=== PATIENT | male | born 1975 | race Caucasian/White ===

== ENCOUNTER 2024-10-11 14:12 | Emergency (ER) | payer BC, SELFPAY ==
--- NOTE | ~2024-10-11 | US_ITS ---
CLINICAL HISTORY: right testicular pain US Scrotum with color flow and pulse Doppler with spectral analysis: Comparison: None Technique: Real time sonographic imaging, including pulse Doppler and color-flow imaging, was performed. Multiple pharmaceutical sales representative static images were saved for review. Findings: Right testicle normal size and echotexture, measures 4.1 x 2.2 x 2.8. Normal color and spectral analysis. Left testicle normal size and echotexture, measures 4.1 x 2.3 x 2.8. Normal color and spectral analysis. Normal sized epididymides. An 8 x 6 mm left epididymal cyst is present No hydroceles or varicoceles. Impression: Normal scrotal ultrasound. No signs of testicular torsion. No inflammatory changes. This document has been electronically signed by: Gonzalo Billingsley MD on 10/11/2024 20:14:59
--- NOTE | ~2024-10-11 | US_ITS ---
CLINICAL HISTORY: right testicular pain US Scrotum with color flow and pulse Doppler with spectral analysis: Comparison: None Technique: Real time sonographic imaging, including pulse Doppler and color-flow imaging, was performed. Multiple personal service representative static images were saved for review. Findings: Right testicle normal size and echotexture, measures 4.1 x 2.2 x 2.8. Normal color and spectral analysis. Left testicle normal size and echotexture, measures 4.1 x 2.3 x 2.8. Normal color and spectral analysis. Normal sized epididymides. An 8 x 6 mm left epididymal cyst is present No hydroceles or varicoceles. Impression: Normal scrotal ultrasound. No signs of testicular torsion. No inflammatory changes. This document has been electronically signed by: Gonzalo Billingsley MD on 10/11/2024 20:14:59
--- NOTE | ~2024-10-11 | CT_ITS ---
CLINICAL HISTORY: lower abd pain CT abdomen and pelvis without contrast Comparison: None provided Findings: Small hiatal hernia. Hepatomegaly with steatosis. No urolithiasis. No bowel obstruction, pneumoperitoneum, or pneumatosis. Fat containing umbilical hernia. Mildly prominent mesenteric nodes, nonspecific. Mildly distended bladder. Prostatomegaly noted. Scattered colonic diverticulosis without diverticulitis or colitis. Normal appendix. No acute fracture. IMPRESSION: No acute findings. This document has been electronically signed by: Elvis Valerio MD on 10/11/2024 21:35:00
--- NOTE | 2024-10-11 14:15 | ECG_ITS ---
Test Reason : CHEST PAIN Blood Pressure : */* mmHG Vent. Rate : 100 BPM Atrial Rate : 100 BPM P-R Int : 134 ms QRS Dur : 90 ms QT Int : 340 ms P-R-T Axes : 41 -57 49 degrees QTcB Int : 438 ms Normal sinus rhythm Left axis deviation Abnormal ECG No previous ECGs available Referred By: Generic ED Physician Electronically Signed By: Gordy Mann
[2024-10-11 14:47] VITALS: BP 135/93; PULSE 100; RESP 16; TEMP 36.1; O2SAT 95; BMI 28.3
--- NOTE | 2024-10-11 14:47 | ED.GENADULT ---
HPI - General Adult General Chief complaint: Urogenital-Male Stated complaint: Chest Pain, Back/ R/L leg pain Time Seen by Provider: 10/11/24 18:02 History of Present Illness HPI narrative: Patient is a 49-year-old male presented today with having pain on urination. Also having pain in the right testicle. Going to the thigh area. There is no change in p.o. intake. Reports mild chest pain that lasts a 2nd or 2 there is no history of traveling. No increased size of the calf. No unilateral leg pain. The chest pain is very sharp it is 1-2 seconds there is no trigger not associated with shortness breath not associated with diaphoresis no recent stress test patient is 49 years old has a history of high blood pressure. History of high triglycerides. No stress test done in the past. Patient is sexually active with 1 partner. There is no penile discharge. There is pain on urination. Positive burning sensation on urination. Related Data Previous Rx's ?Medication ?Instructions ?Recorded phenazopyridine 200 mg tablet 200 mg PO TID 6 doses #6 tabs 10/11/24 (Pyridium) Allergies Allergy/AdvReac Type Severity Reaction Status Date / Time ibuprofen Allergy Hives Verified 10/11/24 14:50 metoprolol Allergy Shortness Verified 10/11/24 14:50 of Breath Review of Systems Review of Systems: Positive chest pain Positive testicular pain Yes all other systems are reviewed and are negative [facility] Social History Social History Smoked in Last 30 Days: No Use of substances other than those prescribed or required for medical reasons: No Advance Directives: No Advance Directives Information Provided: No Do you have a plan to hurt others: No Plan Physical Exam ED Vital Signs: Vital Signs - 24 hr 10/11/24 14:47 10/11/24 17:51 10/11/24 20:00 Temperature 97.0 F 98.2 F 98.3 F Pulse Rate 100 98 96 Respiratory Rate 16 18 16 Blood Pressure 135/93 H 119/78 123/77 Pulse Oximetry 95 97 95 Oxygen Delivery Method Room Air Room Air Room Air BMI result Body Mass Index 28.3 Appearance: Alert. Oriented X3. No acute distress. Eyes: Pupils equal, round and reactive to light. ENT: Pharynx normal. Neck: Normal inspection. Neck supple. No lymph nodes noted. No crepitus CVS: Normal heart rate and rhythm. Pulses normal. Normal S1 and S2 Respiratory: No respiratory distress. Breath sounds normal. No Wheezing. No rales Abdomen: Soft and nontender. No rigidity. No distention. good BS x4 Genital exam there is no testicular tenderness. Cremasteric reflex intact. There is no penile discharge on stripping. Skin: Skin warm and dry. Normal skin color. Normal skin turgor. Extremities: No lower extremity edema. Neurovascular intact to all extremities. No Lacerations. No Rash Neuro: Oriented X 3. No motor deficit. No sensory deficit. Moving all extermities. No slurred speech Course Course Course Narrative: RME, this is a rapid medical exam performed by Tom Foreman please refer to primary provider for complete H&P- 49-year-old male presents for evaluation of burning with urination. He also complains of pain radiating to his legs and also complains of chest pain. Plan for EKG, labs as well as urinalysis. Medications Administered Discontinued Medications Generic Name Dose Route Start Last Admin Trade Name Freq PRN Reason Stop Dose Admin Acetaminophen 975 mg 10/11/24 21:33 10/11/24 22:23 Acetaminophen 325 Mg Tablet PO 10/11/24 21:34 975 mg ONCE ONE Administration Medical Decision Making Medical Decision Making [facility] Narrative: Well-appearing no acute distress patient's urine showed no signs of infection. Patient's scrotal ultrasound was negative for any acute evidence of torsion. Gonorrhea chlamydia was sent patient claims he is monogamous with 1 partner. There is no penile discharge noted just pain on urination there is no retention patient's LFTs are normal. Had nonspecific pain troponins negative. CT scan of the abdomen pelvis is pending to look for kidney stones. 9:30 p.m. assumed care from previous provider pending CT results and final disposition. Patient continues to rest comfortably without complaints. 10:[address] shows no evidence of acute process. Patient is resting comfortably, nontoxic appearing and reports no real change in any of his symptoms. Encouraged hydration. Plan for discharge home, Pyridium for dysuria, follow-up with primary care. Discussed importance of follow-up as well as strict return precautions. Discharged home in stable condition. Differential Diagnosis Differential Diagnoses: The differential diagnosis associated with the presentation includes UTI, testicular torsion, epididymitis, STD, renal colic Admission/Observation Consideration of admission/observation: Escalation of care including admission/observation considered Lab Data MDM Lab Attestation statement: I reviewed the patient's lab results. 10/11/24 15:18 10/11/24 15:18 Labs: Lab Results 10/11/24 10/11/24 Range/Units 15:18 18:07 WBC 7.0 (4.8-10.8) X10*3/uL RBC 5.43 (4.60-5.80) X10*6/uL Hgb 15.4 (14.0-18.0) g/dl Hct 43.7 (42.0-52.0) % MCV 80.5 (80.0-98.0) fL MCH 28.4 (27.0-33.0) pg MCHC 35.2 (31.0-36.0) g/dl RDW 13.2 (11.0-16.0) % Plt Count 207 (160-400) X10*3/uL MPV 10.6 (9.4-12.4) fL Immature Gran % (Auto) 0.3 (0.0-0.4) % Neut % (Auto) 54.5 (45-73) % Lymph % (Auto) 28.8 (20-40) % [place] % (Auto) 13.2 H (2-11) % Eos % (Auto) 2.6 (0-4) % Baso % (Auto) 0.6 (0-2) % Lymph # (Auto) 2.0 (1.2-4.9) X10*3/uL [place] # (Auto) 0.9 (0.1-1.2) X10*3/uL Eos # (Auto) 0.2 (0.0-0.4) X10*3/uL Baso # (Auto) 0.0 (0.0-0.2) X10*3/uL Abs Immat Gran (auto) 0.02 (0.00-0.03) X10*3/uL Absolute Neuts (auto) 3.8 (2.0-8.3) x10*3/uL Absolute Nucleated RBC 0.000 (0.0-0.012) X10*3/uL Nucleated RBC % (auto) 0.0 (0.0-0.2) /100WBC Sodium 139 (135-145) mmol/L Potassium 4.1 (3.3-5.1) mmol/L Chloride 107 (96-108) mmol/L Carbon Dioxide 24 (22-29) mmol/L Anion Gap 12 (12-20) BUN 11 (9-16) mg/dL Creatinine 1.05 (0.5-1.4) mg/dL Estim Creat Clear Calc 81.5 Estimated GFR > 60 Random Glucose 101 (60-115) mg/dL Calcium 9.5 (8.4-10.2) mg/dL Total Bilirubin 0.5 (0.0-1.0) mg/dL AST 29 (5-37) U/L ALT 34 (0-40) U/L Alkaline Phosphatase 77 (39-117) U/L Troponin I High Sens < 2.7 (<3.5-35.0) ng/L Total Protein 7.4 (6.5-8.0) g/dL Albumin 4.6 (3.5-5.0) g/dL Lipase 47 (8-78) U/L Urine Color Yellow Urine Appearance Clear Urine pH 6.5 (5.0-9.0) Ur Specific [place] 1.025 (1.005-1.025) Urine Protein Negative (Neg-Trace) mg/dL Urine Glucose (UA) Negative (Negative) mg/dL Urine Ketones Trace (Negative) mg/dL Urine Blood Negative (Negative) Urine Nitrite Negative (Negative) Ur Leukocyte Esterase Trace H (Negative) Urine RBC 0-2 (0-2) /HPF Urine WBC 0-5 (0-5) /HPF Ur Squamous Epith Cells 0-2 (0-2) /HPF Urine Bacteria None Seen (None Seen) Hyaline Casts 0-2 (0-2) /LPF Radiology Impression Discussion of test interpretation with radiology: I have reviewed the radiologist's reading. Radiologist Impression: CT abdomen and pelvis without contrast Comparison: None provided Findings: Small hiatal hernia. Hepatomegaly with steatosis. No urolithiasis. No bowel obstruction, pneumoperitoneum, or pneumatosis. Fat containing umbilical hernia. Mildly prominent mesenteric nodes, nonspecific. Mildly distended bladder. Prostatomegaly noted. Scattered colonic diverticulosis without diverticulitis or colitis. Normal appendix. No acute fracture. IMPRESSION: No acute findings. This document has been electronically signed by: Elvis Valerio MD on 10/11/2024 21:35:00 Discharge Plan Discharge Clinical Impression: Dysuria Patient Disposition: Home, Self-Care Instructions: Dysuria (ED) Prescriptions: New phenazopyridine [Pyridium] 200 mg tablet 200 mg PO TID Qty: 6 0RF Referrals: Kobi Isidro III, MD [Primary Care Provider] - 10/13/24 Print Language: Israeli
[2024-10-11 15:24] LABS: MANUAL DIFF FLAG NO
[2024-10-11 15:27] LABS: Basophils Percent Auto 0.6 % (0-2); Eosinophils Absolute Auto 0.2 X10*3/uL (0.0-0.4); Eosinophils Percent Auto 2.6 % (0-4); Hematocrit 43.7 % (42.0-52.0); Hemoglobin 15.4 g/dl (14.0-18.0); Imm Gran Abs Auto 0.02 X10*3/uL (0.00-0.03); Imm Gran Pct Auto 0.3 % (0.0-0.4); Lymphocytes Percent Auto 28.8 % (20-40); Mean Corpuscular HGB Conc 35.2 g/dl (31.0-36.0); Mean Corpuscular Hemoglobin 28.4 pg (27.0-33.0); Mean Corpuscular Volume 80.5 fL (80.0-98.0); Mean Platelet Volume 10.6 fL (9.4-12.4); Monocytes Absolute Auto 0.9 X10*3/uL (0.1-1.2); Monocytes Percent Auto 13.2 % (2-11); Neutrophils Absolute Auto 3.8 x10*3/uL (2.0-8.3); Neutrophils Percent Auto 54.5 % (45-73); Platelet Count 207 X10*3/uL (160-400); Red Blood Count 5.43 X10*6/uL (4.60-5.80); Red Cell Distribution Width 13.2 % (11.0-16.0)
[2024-10-11 15:45] LABS: Alanine Aminotransferase 34 U/L (0-40); Albumin Level 4.6 g/dL (3.5-5.0); Alkaline Phosphatase 77 U/L (39-117); Anion Gap 12 (12-20); Aspartate Amino Transferase 29 U/L (5-37); Bilirubin Total 0.5 mg/dL (0.0-1.0); Blood Urea Nitrogen 11 mg/dL (9-16); Calcium 9.5 mg/dL (8.4-10.2); Carbon Dioxide 24 mmol/L (22-29); Chloride 107 mmol/L (96-108); Creatinine Clr Calc Pharmacy 81.5; Estimated Glomerular Filt Rate > 60; Glucose Random 101 mg/dL (60-115); Lipase 47 U/L (8-78); Potassium 4.1 mmol/L (3.3-5.1); Sodium 139 mmol/L (135-145); Total Protein 7.4 g/dL (6.5-8.0)
[2024-10-11 15:56] LABS: Troponin-I High Sensitivity < 2.7 ng/L (<3.5-35.0)
[2024-10-11 17:51] VITALS: BP 119/78; PULSE 98; RESP 18; TEMP 36.8; O2SAT 97
[2024-10-11 18:15] LABS: Appearance Urine Clear; Color Urine Yellow; Glucose Urine UA Negative (Negative); Leukocyte Esterase Urine Trace (Negative); Nitrite Urine Negative (Negative); PH 6.5 (5.0-9.0); Specific Gravity - Urine 1.025 (1.005-1.025); UMIC TRIGGER UACC YES; Urine Blood Negative (Negative); Urine Ketones Trace mg/dL (Negative); Urine Protein Negative (Neg-Trace)
[2024-10-11 18:20] LABS: Bacteria Urine None Seen (None Seen); Hyaline Casts Urine 0-2 /LPF (0-2); RBC Urine 0-2 /HPF (0-2); Squamous Epithelial Cell Urine 0-2 /HPF (0-2); WBC Urine 0-5 /HPF (0-5)
--- OUTSIDE RECORDS SUMMARY | 2024-10-11 18:50 | XMS_ITS | Encounter Summary ---
Author Organization [facility] [address] Care Team Providers Care Roofer Applicator Name Role Phone Kobi Isidro MD Primary Care Provider [phone] Reason for Visit * Reason Onset Date Comments No Show 10/07/2024 Encounter Details Date Type Department Care Team ([facility] st Contact Info) Description 10/07/2024 Telephone [facility] [address] [facility] [address] [place] [phone] Xavier Richardson MD [address] [facility] [address] [place], [place] [id number] No Show Social History Tobacco Use Types Packs/Day Years Used Date Smoking Tobacco: Former Cigarettes Q uit: 03/15/2010 Smokeless Tobacco: Never Alcohol Use Standard Drinks/Week Comments Yes 2.5 (1 standard drink = 0.6 oz p ure alcohol) Housing Instability Answer Date Recorde d Are you worried that in the next 2 months you may not have stable housing? No 07/12/2024 Food Access & Nutrition Answer Date Rec orded Do you have access to a vari ety of food including fruits and vegetables? Yes 07/12/2024 Health Literacy Answer Date Recorded How often do you need to hav e someone help you when you read instructions, pamphlets, or other written material from your doctor or pharmacy? Never 07/12/2024 Caregiver: How often do you need to have someone help you when you read instructions, pamphlets, or other written material from your doctor or pharmacy? Not on file 07/12/2024 Financial Risk Answer Date Recorded How hard is it for you to pa y for the very basics like food, housing, medical care, and air conditioning / heating? Patient declined 07/12/2024 Transportation Answer Date Recorded Has the lack of transportati on kept you from meetings, work, or from getting things needed for daily living? No Has the lack of transportati on kept you from medical appointments or from getting medications? No 07/12/2024 Social Isolation Answer Date Recorded How often do you feel lonely or isolated from th ose around you? Rarely 07/12/2024 Food Risk Answer Date Recorded Within the past 12 months we worried whether our food would run out before we got money to buy more. Never true 07/12/2024 Within the past 12 months th e food we bought just didn't last and we didn't have money to get more. Never true 07/12/2024 Dependent Care Answer Date Recorded Do you need help finding or paying for care for your loved ones. For example, child care supervisor or elderly care for an older adult? No 07/12/2024 Education Answer Date Recorded Do you think completing more education or training, like finishing a GED, going to college, or learning a trade, would be helpful for you? No 07/12/2024 Employment and Income Answer Date Recor ded During the last four weeks, have you been actively looking for work? No 07/12/2024 Living Situation Answer Date Recorded What is your living situation? 0 07/12/2024 Sex and Gender Information Value Date Recorded Sex Assigned at Not on file Legal Sex Male 2:23 AM EST Gender Identity Not on file Sexual Orientation Not on file documented as of this encounter Progress Notes * Magi Dupree MA - 10/07/2024 10:11 AM EDT Letter sent with information on no showed appointment and no show policy documented in this encounter Plan of Treatment Upcoming Encounters Date Type Department Care Team (Late st Contact Info) Description 10/12/2024 9:00 AM EDT Office Visit Orthopedics [address] [place] [phone] Mickey Jeff PA [address] [place] [address] 10/17/2024 8:10 AM EDT Office Visit [facility] - [address] [facility] [address] [place] [phone] Brittany Walters NP [address] [place] [address] documented as of this encounter Visit Diagnoses Not on filedocumented in this encounter Additional Health Concerns Assessment Noted Time PHQ-9 Depression Total Score: 0 07/13/19 25 1:11 PM EDT documented as of this encounter Care Teams Roofer Applicator Relationship Specialty Start Date End Date Kobi Isidro MD [address] [place] [address] PCP - General Internal Medicine 03/14/13 documented as of this encounter
--- NOTE | 2024-10-11 19:48 | PC.NURSE ---
ua at bedside at this time
[2024-10-11 20:00] VITALS: BP 123/77; PULSE 96; RESP 16; TEMP 36.8; O2SAT 95
--- NOTE | 2024-10-11 22:17 | MHC.EDTECH ---
bladder scan preformed prior to urination with 162ml. bladder scan preformed after urination with no difficulty with 0ml.
[2024-10-11] MEDS: Acetaminophen 325 MG TABLET 975 MG PO (22:23)
[2024-10-11 23:03] VITALS: BP 123/77; PULSE 96; RESP 16; TEMP 36.8; O2SAT 95
[2024-10-12 06:09] LABS: CT PCR NOT DETECTED (Not Detect.); NG PCR NOT DETECTED (Not Detect.)
== END 2024-10-11 23:03 | disposition home or self-care (01) ==
PROVIDERS: Emergency Medicine Emergency Medical Services; Physician Assistant; Emergency Provider Emergency Medicine; PCP Internal Medicine
DX: R30.0 Dysuria (principal); N50.811 Right testicular pain; I10 Essential (primary) hypertension; Z79.899 Other long term (current) drug therapy
CPT/HCPCS: 36415; 74176; 76870; 80053; 81001; 83690; 84484; 85025; 87491; 87591; 93005; 93975; 99284; 99285

== ENCOUNTER → 2024-10-11 14:15 | Outpatient (BNV) | payer BC, SELFPAY | PROVIDERS: Emergency Provider Emergency Medicine; PCP Internal Medicine; Visit Provider Internal Medicine Cardiovascular Disease | DX: R94.31 Abnormal electrocardiogram [ECG] [EKG] (principal); R07.9 Chest pain, unspecified | CPT/HCPCS: 93010 ==

== ENCOUNTER → 2024-10-11 18:12 | Outpatient (BNV) | payer BC, SELFPAY | PROVIDERS: Emergency Provider Emergency Medicine Emergency Medical Services; PCP Internal Medicine; Visit Provider Radiology Diagnostic Radiology | DX: K57.30 Diverticulosis of large intestine without perforation or abscess without bleeding (principal); N50.811 Right testicular pain | CPT/HCPCS: 74176; 76870; 93975 ==

== ENCOUNTER 2025-02-16 20:00 | Emergency (ER) | payer BC, SELFPAY ==
--- NOTE | ~2025-02-16 | XR_ITS ---
CLINICAL HISTORY: closed in car door 3 view right hand Comparison: None provided Findings: Minimal cortical irregularity present at the distal tuft of the 5th distal phalanx, consistent with a fracture. No radiopaque foreign body. IMPRESSION: 1. Fracture present at the distal tuft of the 5th distal phalanx of the right hand. This document has been electronically signed by: Kyle Cantu MD on 02/16/2025 21:43:31
[2025-02-16 20:03] VITALS: BP 139/85; PULSE 93; RESP 12; TEMP 36.9; O2SAT 97; BMI 29.1
--- NOTE | 2025-02-16 20:21 | ED_ITS ---
HPI - Extremity Problem General Chief complaint: Extremity Injury, Upper Stated complaint: hit finger w car Time Seen by Provider: 02/16/25 20:17 Source: patient Mode of arrival: ambulatory Limitations: no limitations History of Present Illness ED Provider: JEROMY HERMOSILLO PA-C HPI Narrative: 49-year-old [id number] male presents to the ED today for evaluation of right 5th digit injury. Patient states he accidentally closed his right 5th digit in his car door at approximately 2:30 p.m. today. He presented to urgent care who sent him to our facility for x-rays. He states that his nail is lifted off of his finger. He attempted to remove it by himself however was unsuccessful. Admits to 9/10 pain to the digit however is declining any pain meds at this time. Denies any difficulty moving the finger. He is not on anticoagulation. denies numbness/tingling. Related Data Previous Rx's ?Medication ?Instructions ?Recorded phenazopyridine 200 mg tablet 200 mg PO TID 6 doses #6 tabs 10/11/24 (Pyridium) Allergies Allergy/AdvReac Type Severity Reaction Status Date / Time ibuprofen Allergy Hives Verified 03/07/25 09:07 metoprolol Allergy Shortness Verified 03/07/25 09:07 of Breath Review of Systems Review of Systems: Yes all other systems are reviewed and are negative [facility] Past Medical History Attestation statement: The following information was validated with the patient. Source: old records reviewed and nursing notes reviewed Social History Social History Alcohol intake: current Alcohol intake frequency: holidays/special occasions o nly Alcohol type: wine Patient Tobacco Use Status: Former Tobacco user Current occupational status: employed Current occupation: rt handed, Sales Physical Exam Vital Signs: Vital Signs: Last Vital Signs Temp 98.2 F 02/16/25 23:05 Pulse 78 02/16/25 23:05 Resp 15 02/16/25 23:05 BP 144/78 H 02/16/25 23:05 Pulse Ox 96 02/16/25 23:05 O2 Del Method Room Air 02/16/25 23:05 BMI result Body Mass Index 29.1 vitals wnl General: Well appearing, in no acute distress. Skin: Warm, dry, intact. No rashes or lesions. Head: Normocephalic, atraumatic. EENT: Hearing is intact b/l. Conjunctiva clear. PERRLA. EOM intact. Moist mucous membranes.? Cardiac: Chest wall symmetric. RRR Lungs: Normal respiratory effort without accessory muscle use Back: No midline spinous or paraspinal tenderness. No step off deformity. Ext: +right 5th digit nail plate lifted from bed at proximal end. distal aspect of nail plate in place. no active bleeding. no damage noted to nail bed. FROM intact to right 5th MCP/PIP/DIP. Neuro: AOx3. Normal speech. Ambulating with steady gait. Psych: Appropriate mood and affect. Responds appropriately to questions. Course Course Course Narrative: digit block performed after obtaining verbal consent from patient. I was able to secure nail plate under proximal nail fold, one suture placed through nail to attach the nail to the nail bed. patient tolerate well. xr showing distal tuft fracture to 5th digit. finger splint applied. will place patient on augmentin. tdap updated. advised to f/u with hand surgery - referral provided. Patient has remained stable throughout ED visit today. Discussed worrisome signs and symptoms and when to return to the ED. All questions answered at this time. Patient is agreeable with disposition and stable for discharge. Medications Administered Discontinued Medications Generic Name Dose Route Start Last Admin Trade Name Freq PRN Reason Stop Dose Admin Amoxicillin/Clavulanate Potassium 875 mg 02/16/25 22:39 02/16/25 23:00 Amoxicillin/Potassium Clav 875 Mg Tablet PO 02/16/25 22:40 875 mg ONCE ONE Administration Diphtheria/Tetanus/Acell Pertussis 0.5 ml 02/16/25 22:39 02/16/25 23:00 Diphth,Pertus(Acell),Tet Adult 0.5 Ml Syringe IM 02/16/25 22:40 0.5 ml .ONCE ONE Administration Lidocaine HCl 10 ml 02/16/25 20:28 02/16/25 20:34 Lidocaine Hcl 1 % Mpf 5 Ml Vial INFILTRATI 02/16/25 20:29 10 ml ONCE ONE Administration Medical Decision Making Medical Decision Making MDM Narrative: 49-year-old [id number] male presents to the ED today for evaluation of right 5th digit injury. hypertensive, vitals are wnl. on exam, right 5th digit nail plate lifted from bed at proximal end. distal aspect of nail plate in place. no active bleeding. no damage noted to nail bed. FROM intact to right 5th MCP/PIP/DIP. Differential diagnosis includes fracture, dislocation, nail bed injury, subungal hematoma Plan for xrays and re-evaluation. Will attempt nail repair. Tdap will be updated today. Differential Diagnosis Differential Diagnoses: The differential diagnosis associated with the presentation includes as above. Admission/Observation not indicated. Procedures Laceration Laceration 1: Site: hand (5th digit nail) Side (If applicable): right Local Anesthetic: lidocaine 1% Amount of anesthesia used (mL): 10 Pre-repair: wound explored and irrigated extensively Skin layer closed with: nylon Size (cm): 3-0 Number of sutures: 1 Nerve Block Nerve Block 1: Time out performed: Yes Local Anesthetic: lidocaine 1% Amount of anesthesia used (mL): 10 Side: right Nerve Blocks: digital (5th) Procedure Successful: Yes Patient Tolerated Procedure: well Complications: none Orthopedic Splinting/Casting Injury #1: Side: right Upper Extremity Injury Location: finger Upper Extremity Immobilizer: aluminum form splint Discharge Plan Discharge Clinical Impression: Fracture of finger, Injury of nail bed of finger Patient Disposition: Home, Self-Care Instructions: Finger Fracture (ED) Additional Instructions: You were seen in the ED today for following a crush injury to your right pinky finger. You have a fracture of the tip of your finger. This does not need to be splinted. Your nail bed was reinserted. There is [address] You need to return in 7-10 days to have this removed. You may also have this done at any urgent care or your primary care office. Take Tylenol and/or Ibuprofen as needed for pain. Rest and ice the finger as this can help with swelling and pain. I am sending you home with antibiotics (Augmentin). On Augmentin, softer bowel movements are to be expected. Call your provider if you move your bowels more than 4 times a day, your bowel movements are almost all liquid, or you get a rash.? Your tetanus was updated today. Follow up with Orthopedics. You have been provided with a referral. Call them to establish care. They will not call you. Return with new or worsening symptoms. In the case of an emergency call 911. Prescriptions: No Action phenazopyridine [Pyridium] 200 mg tablet 200 mg PO TID Qty: 6 0RF Referrals: [facility] [Provider Group] Referral Note: open finger fracture Kobi Isidro III, MD [Primary Care Provider, Medical] Stand Alone Forms: Work/School Release Interventions: ED Discharge Assessment Last Done: 02/16/25 23:05 Discharge Date/Time: 02/16/25 23:05 Print Language: Faroese
--- OUTSIDE RECORDS SUMMARY | 2025-02-16 20:21 | XMS_ITS | Clinical Summary ---
Author Organization [address] [facility] Address [address] [place] [address] Phone Care Team Providers Care Cryptologic Support Specialist Name Role Phone Kobi Isidro MD Primary Care Provider [phone] Allergies Active Allergy Reactions Criticality Noted Date Comments Apple Rash 03/15/2013 Flavoring Agent 04/01/2021 Ibuprofen 01/23/2021 Metoprolol Hives 10/28/2023 Milk 04/01/2021 Other 03/15/2013 Some vegetables Fruit (Generic Multi-vegetable Shellfish Allergy Shellfish Derived 09/20/2024 [place] 10/14/2013 Medications amitriptyline (ELAVIL) 25 mg tablet Take 1 Tablet by mouth at bedtime. Active atorvastatin (LIPITOR) 10 mg tablet Take 1 tablet (10 mg total) by mouth 1 (one) time each day. 30 each 03/28/2024 5 Active hydroCHLOROthia zide (HYDRODIURIL) 25 mg tablet Take 1 tablet (25 mg total) by mouth 1 (one) time each day. 30 each 09/20/2024 6 Active fenofibrate (TRICOR) 48 mg tablet TAKE 1 TABLET(48 MG) BY MOUTH 1 TIME EACH DAY 30 tablet 1 11/10/2024 Active lisinopriL (PRINIVIL,ZESTR IL) 20 mg tablet TAKE 1 TABLET BY MOUTH DAILY 90 tablet 3 12/20/2024 Active dilTIAZem (Tiadylt ER) 240 mg 24 hr capsule Take 1 capsule (240 mg total) by mouth 1 (one) time each day. 90 capsule 1 12/22/2024 Active Active Problems Problem Noted Date Diagnosed Date Internal hemorrhoids 02/08/2024 Constipation 02/08/2024 Dizziness 03/06/2023 Chest pain 03/06/2023 Assessment & Plan (09/20/2024 9:04 AM EDT): The patient has atypical sounding chest discomfort that corresponds per his report with elevation his blood pressure. To start, will better control his blood pressure at home and follow his symptoms. Should he continue with chest discomfort with better control blood pressure, will begin ischemic evaluation DVT (deep venous thrombosis) ([facility] V24, [facility]/ [facility] V28) 05/02/2022 Overview (02/08/2024): Last Assessment & Plan: He did have a DVT. He is on Eliquis. I did tell him he needs to follow-up with his PCP regarding the timeframe that he should be on this. He needs to follow-up with his PCP for refills of his medications as I do not treat DVTs. He understands this. Obstructive sleep apnea 07/22/2021 Overview (02/08/2024): [facility] Home Sleep Apnea Test: Date 07/16/2021; Wt 175#; BMI 29; KARYNA (AHI) 27, AI 22; HI 4; Unclassified apneas 0; Obstructive apneas 66; Central apneas 2; Mixed apneas 0; hypopneas 12; average oxygen saturation 88% (lowest 70% with saturations <88% for 5% or more of study) [facility] treatment polysomnogram 09/25/2021. Weight 178; BMI 29. Interpretation: Sleep apnea appears well controlled with CPAP pressure of 6. - Obstructive Sleep Apnea - moderate; mostly obstructive apneas and hypopneas; with sleep related hypoventilation by 2021 home sleep apnea test. Sleep Medicine Services managing. Hypersomnia 06/26/2021 Overview (02/08/2024): Last Assessment & Plan: Previous at home sleep study showed significant apnea. He is having an in-house sleep study performed in the next week or so. Aortic aneurysm ([facility] V24) 06/26/2021 Overview (09/20/2024): - 4.1cm 09/2022 -4.2 cm 01/2024 Assessment & Plan (09/20/2024 9:05 AM EDT): The patient's aorta size is stable across multiple echocardiograms. Could consider updated testing in 2025. Tachycardia 04/01/2021 Overview (09/20/2024): - average HR on holter 2021 116 - on diltiazem, listed allergies to metoprolol -Average heart rate 112 10/2023 Assessment & Plan (09/20/2024 9:06 AM EDT): The patient's heart rate is better controlled of late on his current dose diltiazem. He has a listed allergy to metoprolol. For now, continue diltiazem at current dose Palpitations 03/27/2021 Overview (02/08/2024): Last Assessment & Plan: AnyHe has palpitations that lasts 1 to 1-1/2 minutes. This occurs on a daily basis. This can happen several times a day. They started 3 weeks ago. He started drinking coffee 1 month ago. I asked him to stop drinking coffee and keep an eye on his symptoms over the next month. He will call me and let me know provement. We will decide on Holter monitoring at that time if necessary. Overweight (BMI 25.0-29.9) 12/25/2020 Dora spots 07/17/2020 Overview (02/08/2024): On penis (Dr. Willard) Hepatic steatosis 09/14/2019 Diverticulosis of colon 09/14/2019 Epididymal cyst 05/05/2019 Overview (02/08/2024): Right side, 8mm imagining 04/2019, referred to urology Hypertension 08/25/2016 Assessment & Plan (09/20/2024 9:08 AM EDT): Patient continues to report elevated blood pressure at home. His blood pressure is well-controlled in office today. He reports that he correlates his blood pressure across to machines and they both give elevated readings. His blood pressure machines have not been correlated in office though. He could bring him into our office at his next visit we can correlate them. Will increase his hydrochlorothiazide to 25 mg daily. Historically, he has indicated that he has had rise in his creatinine on higher dose HCTZ. This may have been situational and he is willing to try it again. Will follow his renal function and electrolytes on labs in about a week. If his creatinine rises again, could consider increasing his diltiazem and/or starting hydralazine. If his creatinine rises, would also consider renal artery ultrasound. Hypertriglyceridemia 08/04/2016 Assessment & Plan (09/20/2024 9:08 AM EDT): The patient has been prescribed fibrate therapy by his PCP. He continues on statin. Update fasting lipid profile with his BMP in the next couple of weeks. Gynecomastia 09/08/2013 Breast mass 09/08/2013 Surgical History Surgery Date Site/Laterality Comments MULTIPLE TOOTH EXTRACTIONS PROCEDURE: HISTORICAL DENTAL EXTRACTION COLONOSCOPY 11/02/2015 PROCEDURE: HISTORICAL COLONOSCOPY; COMMENT: Normal examination UPPER GASTROINTESTINAL ENDOSCOPY 11/02/2015 PROCEDURE: GA UPPER GI ENDOSCOPY PERFORMED; COMMENT: Minimal visible erosive esophagitis, confirmed on biopsy. ESOPHAGOGASTRODUODENOSCOPY PROCEDURE: GA EGD TRANSORAL BIOPSY SINGLE/MULTIPLE; COMMENT: Performed on March 30, [address] Lorri Caceres-performed with colonoscopy COLONOSCOPY PROCEDURE: HISTORICAL COLONOSCOPY; COMMENT: Performed on March 30, [address] Lorri Caceres-performed with EGD-internal hemorrhoids and diverticulosis noted Medical History Medical History Date Comments Epigastric pain DX:Epigastric pa in Abdominal discomfort in righ t upper quadrant DX:Abdominal discomfort in r ight upper quadrant Fatty liver DX:Fatty liver Elevated cholesterol with el evated triglycerides DX:Elevated cholesterol with elevated triglycerides Diverticulosis DX:Diverticulosi s Internal hemorrhoids DX:Internal hemorrhoids Dyspepsia DX:Dyspepsia Abdominal pain DX:Abdominal khalif n Constipation DX:Constipation Hyperlipidemia DX:Hyperlipidemi a Family History Medical History Relation Name Comments Hypertension Father Melanoma Father Other: Other Mother alive and well Colon cancer Mother's side uncle Hypertension Mother's side Blindness Neg Hx Cataracts Neg Hx Glaucoma Neg Hx Macular degeneration Neg Hx Strabismus Neg Hx Relation Name Status Comments Father Mother Mother's side Social History Tobacco Use Types Packs/Day Years Used Date Smoking Tobacco: Former Cigarettes Q uit: 03/15/2010 Smokeless Tobacco: Never Tobacco Cessation:Counseling Given: Not Answered Alcohol Use Standard Drinks/Week Comments Yes 2.5 [...] care for your loved ones. For example, assistant child care teacher or elderly care for an older adult? [...] Date Recorded What is your living situation? Unrecognized valu e 07/12/2024 Sex and Gender Information Value Date Recorded Sex Assigned at Not on file Legal Sex Male 2:23 AM EST Gender Identity Not on file Sexual Orientation Not on file Obstetrics History Last Filed Vital Signs Vital Sign Reading Time Taken Comments Blood Pressure 124/80 09/20/2024 8:30 AM EDT Pulse 89 09/20/2024 8:30 AM EDT Temperature 36.2 C (97.1 F) 07/13/2024 9:01 AM EDT Respiratory Rate 16 07/13/2024 9:01 AM EDT Oxygen Saturation 97% 09/20/2024 8:30 AM EDT Inhaled Oxygen Concentration - - Weight 82.2 kg (181 lb 3.2 oz) 09/20/2024 8:30 A M EDT Height 165.1 cm (5' 5 ) 09/20/2024 8:30 AM EDT Body Mass Index 30.15 09/20/2024 8:30 AM EDT Plan of Treatment Upcoming Encounters Date Type Department Care Team (Late st Contact Info) Description 02/17/2025 7:40 AM EDT Office Visit [facility] [address] [facility] [address] [place] [address] Brittany Walters, MAEGAN [address] [facility] [address] [place] [address] Health Maintenance Due Date Last Done Comments Hepatitis B Vaccines (1 of 3 - 19+ 3-dose series) 1994 HIV Screening 04/05/2022 COVID-19 Vaccine ( - season) 2024 Influenza Vaccine (#1) 2024 Social Influencers of Health Screening 07/12/2025 07/12/2024 Hypertension/CHF/CAD Annual BMP Blood Test 09/29/2025 09/29/2024, 05/23/2024, 03/23/2024, Additional history exists Cholesterol Screening (Lipid Panel) 09/29/2029 09/29/2024, 03/23/2024, 03/23/2024, Additional history exists Colorectal Cancer Screening: Colonoscopy 05/29/2031 05/29/2021 DTaP,Tdap,and Td Vaccines (2 - Td or Tdap) 07/01/2031 06/30/2021 RSV Immunization Adult Patients (1 - 1-dose 75+ series) 2050 Hepatitis C Screening Completed 12/25/2020 Depression Screening Completed 07/12/2024 HIB Vaccines Aged Out No longer eligi ble based on patient's age to complete this topic HPV Vaccines Aged Out No longer eligi ble based on patient's age to complete this topic Hepatitis A Vaccines Aged Out No long er eligible based on patient's age to complete this topic IPV Vaccines Aged Out No longer eligi ble based on patient's age to complete this topic MMR Vaccines Aged Out No longer eligi ble based on patient's age to complete this topic Meningococcal ACWY Vaccine Aged Out N o longer eligible based on patient's age to complete this topic Meningococcal B Vaccine Aged Out No l onger eligible based on patient's age to complete this topic Pneumococcal Vaccine: Pediatrics (0 to 5 Years) and At-Risk Patients (6 to 49 Years) Aged Out No longer eligible based on patient's age to complete this topic RSV Immunization Patients Under 20 months Aged Out No longer eligible based on patient's age to complete this topic Varicella Vaccines Aged Out No longer eligible based on patient's age to complete this topic Procedures Procedure Name Priority Date/Time Associated Diagnosis Comments BASIC METABOLIC PANEL Routine 09/29/2024 9:47 AM EDT Primary hypertension LIPID PANEL WITH REFLEX TO DIRECT LDL Routine 09/29/2024 9:47 AM EDT Hypertriglyceridemia COLONOSCOPY Routine 05/29/2021 HEPATITIS C SCREENING Routine 12/25/2020 from Last 3 Months or Most Recently Relevant to Health Maintenance Results * (ABNORMAL) Lipid panel with reflex to direct LDL (09/29/2024 9:47 AM EDT) Cholesterol 166 0 - 200 mg/dL LAB CHEMISTRY METHOD 09/29/2024 12:59 PM EDT [facility] Triglycerides 260(H) 0 - 150 mg/dL LAB CHEMISTRY METHOD 09/29/2024 12:59 PM EDT [facility] HDL 40 >=40 mg/dL LAB CHEMISTRY METHOD 09/29/2024 12:59 PM EDT [facility] LDL Calculated 74 0 - 100 mg/dL LAB CHEMISTRY METHOD 09/29/2024 12:59 PM EDT [facility] VLDL Cholesterol Thro 52 mg/dL LAB CHEMISTRY METHOD 09/29/2024 12:59 PM EDT [facility] Non HDL Chol. (LDL+VLDL) 126 <145 mg/dL LAB CHEMISTRY METHOD 09/29/2024 12:59 PM EDT [facility] Chol/HDL Ratio 4.2 0.0 - 4.4 LAB CHEMISTRY METHOD 09/29/2024 12:59 PM EDT [facility] Blood Venous blood specimen / Unknown Venipuncture / Unknown 09/29/2024 9:47 AM EDT 09/29/2024 9:47 AM EDT us Brittany Walters NP LAB BLOOD ORDERABLES Final Resu lt [facility] [address] [place] [address], * Basic metabolic panel (09/29/2024 9:47 AM EDT) Pathologist [facility] Sodium 134 133 - 145 mmol/L LAB CHEMISTRY METHOD 09/29/2024 12:59 PM EDT [facility] Potassium 4.1 3.5 - 5.5 mmol/L LAB CHEMISTRY METHOD 09/29/2024 12:59 PM EDT [facility] Chloride 105 96 - 110 mmol/L LAB CHEMISTRY METHOD 09/29/2024 12:[address] [facility] CO2 21 21 - 32 mmol/L LAB CHEMISTRY METHOD 09/29/2024 12:[address] [facility] Anion Gap 8 3 - 11 LAB CHEMISTRY METHOD 09/29/2024 12:[address] [facility] Glucose 100 70 - 100 mg/dL LAB CHEMISTRY METHOD 09/29/2024 12:[address] [facility] BUN 18 5 - 25 mg/dL LAB CHEMISTRY METHOD 09/29/2024 12:[address] [facility] Creatinine 1.11 0.70 - 1.30 mg/dL LAB CHEMISTRY METHOD 09/29/2024 12:[address] [facility] eGFR 81 >=60 mL/min/1. 73m2 LAB CHEMISTRY METHOD 09/29/2024 12:[address] [facility] Comment:Calculation based on the Chronic Kidney Disease Epidemiology Collaboration (CKD-EPI) equation refit without adjustment for race. BUN/Creatinine Ratio 16.2 LAB CHEMISTRY METHOD 09/29/2024 12:[address] [facility] Calcium 9.3 8.5 - 10.5 mg/dL LAB CHEMISTRY METHOD 09/29/2024 12:[address] [facility] Blood Venous blood specimen / Unknown Venipuncture / Unknown 09/29/2024 9:47 AM EDT 09/29/2024 9:47 AM EDT Brittany Walters NP LAB BLOOD ORDERABLES Final Resu lt [facility] [address] [place] [address], * Colonoscopy (05/29/2021) Colonoscopy no interpretation abstracted Anatomical Region Laterality Modality Other Historical Provider HEALTH MAINTENANCE Final Result * Hepatitis C Screening (12/25/2020) Hepatitis C Screening abstracted us Historical Provider HEALTH MAINTENANCE Final Result from Last 3 Months or Most Recently Relevant to Health [place] [phone] [facility] Care Teams Cryptologic Support Specialist Relationship Specialty Start Date End Date Kobi Isidro MD [address] [place] [address] DEEPALI PERDOMO [phone] PCP - General Internal Medicine 02/14/25
--- OUTSIDE RECORDS SUMMARY | 2025-02-16 20:21 | XMS_ITS | Clinical Summary ---
Author Organization [facility] Address [address] [place], [place] [id number] Care Team Providers Care Foam Fabricator Name Role Phone Kobi Isidro MD Primary Care Provider [phone] Allergies Active Allergy Reactions Criticality Noted Date Comments Ibuprofen Anaphylaxis High 07/22/2022 Medications No known medications Active Problems No known active problems Social History Tobacco Use Types Packs/Day Years Used Date Smoking Tobacco: Never Smokeless Tobacco: Never Tobacco Cessation:Counseling Given: Not Answered Alcohol Use Standard Drinks/Week Comments Never 0 (1 standard drink = 0.6 oz pur e alcohol) Sex and Gender Information Value Date Recorded Sex Assigned at Not on file Gender Identity Not on file Sexual Orientation Not on file Job Start Date Occupation Industry Not on file Not on file Not on file Last Filed Vital Signs Vital Sign Reading Time Taken Comments Blood Pressure 128/74 12/10/2022 8:42 AM EDT Pulse 103 12/10/2022 8:42 AM EDT Temperature 36.8 C (98.3 F) 12/10/2022 8:42 AM EDT Respiratory Rate - - Oxygen Saturation 96% 12/10/2022 8:42 AM EDT Inhaled Oxygen Concentration - - Weight 75.3 kg (166 lb) 12/10/2022 8:42 AM EDT Height - - Body Mass Index - - Plan of Treatment Health Maintenance Due Date Last Done Comments Hepatitis B Vaccines (1 of 3 - 3-dose series) 1975 Hepatitis C Screening 1975 COVID-19 Vaccine (#1) 1975 Depression Screening 1987 Preventative Health Evaluation 1993 DTap / Tdap / Td (1 - Tdap) 1994 Colon Cancer Screening (Colonoscopy) 2020 Influenza Vaccine (#1) 2024 Pneumococcal Vaccine Aged Out No long er eligible based on patient's age to complete this topic RSV Ped < 20 months Aged Out No longe r eligible based on patient's age to complete this topic Care Teams Foam Fabricator Relationship Specialty Start Date End Date Kobi Isidro MD PCP - General Internal Medicine 06/10/22
[2025-02-16] MEDS: Lidocaine HCl 1 % MPF 5 ML VIAL 10 ML INFILTRATI (20:34)
[2025-02-16 22:56] VITALS: BP 144/78; PULSE 78; RESP 15; TEMP 36.8; O2SAT 96
[2025-02-16] MEDS: Diphth,Pertus(ACell),Tet Adult 0.5 ML SYRINGE IM (23:00)
[2025-02-16 23:05] VITALS: BP 144/78; PULSE 78; RESP 15; TEMP 36.8; O2SAT 96
== END 2025-02-16 23:05 | disposition home or self-care (01) ==
PROVIDERS: Emergency Provider Emergency Medicine; PCP Internal Medicine
DX: S62.606A Fracture of unspecified phalanx of right little finger, initial encounter for closed fracture (principal); S61.316A Laceration without foreign body of right little finger with damage to nail, initial encounter; S67.196A Crushing injury of right little finger, initial encounter; M79.641 Pain in right hand; X58.XXXA Exposure to other specified factors, initial encounter; Y93.9 Activity, unspecified; Y92.810 Car as the place of occurrence of the external cause; Y99.8 Other external cause status; Z23 Encounter for immunization
CPT/HCPCS: 12041; 29130; 73130; 90471; 90715; 99284; J2003

== ENCOUNTER → 2025-02-16 20:58 | Outpatient (BNV) | payer BC, SELFPAY | PROVIDERS: Emergency Provider Emergency Medicine; PCP Internal Medicine; Visit Provider Radiology Diagnostic Radiology | DX: S62.636A Displaced fracture of distal phalanx of right little finger, initial encounter for closed fracture (principal) | CPT/HCPCS: 73130 ==

== ENCOUNTER 2025-02-24 08:35 | Outpatient (REF) | payer BC, SELFPAY ==
--- NOTE | ~2025-02-24 | XR_ITS ---
EXAMINATION: XR HAND 3 OR MORE VIEWS RIGHT HISTORY: M79.641 - Pain in right hand COMPARISON: Comparison is made with the prior examination dated 02/16/2025. FINDINGS: Three views of the right hand are submitted. Osseous mineralization is normal. Again seen is a fracture of the distal tuft of the 5th finger. No additional fracture is identified. There is no dislocation. The joint spaces are preserved. The soft tissues are unremarkable. XR/XR hand RT min 3V IMPRESSION: Fracture of the distal tuft of the 5th finger without change. Electronically signed by: Nino Oreilly MD 02/24/2025 09:51 AM EDT
--- OUTSIDE RECORDS SUMMARY | 2025-02-24 08:50 | XMS_ITS | Clinical Summary ---
Author Organization [facility] Address [address] [place], [place] [id number] Care Team Providers Care Kelly Machine Operator Name Role Phone Kobi Isidro MD Primary Care Provider [phone] Allergies Active Allergy Reactions Criticality Noted Date [...] age to complete this topic Care Teams Kelly Machine Operator Relationship Specialty Start Date End Date Kobi Isidro MD PCP - General Internal Medicine 06/10/22
--- OUTSIDE RECORDS SUMMARY | 2025-02-24 08:50 | XMS_ITS | Clinical Summary ---
Author Organization [address] [facility] Address [address] [place] [address] Phone Care Team Providers Care Contract Post Office Clerk Name Role Phone Kobi Isidro MD Primary Care Provider [phone] Allergies Active Allergy Reactions Criticality Noted Date Comments Apple Rash 03/15/2013 Flavoring Agent 04/01/2021 Ibuprofen 01/23/2021 Metoprolol Hives 10/28/2023 Milk 04/01/2021 Other 03/15/2013 Some vegetables Fruit (Generic Multi-vegetable Shellfish Allergy Shellfish Derived 09/20/2024 [place] 10/14/2013 Medications amitriptyline (ELAVIL) 25 mg tablet Take 1 Tablet by mouth at bedtime. Active atorvastatin (LIPITOR) 10 mg tablet Take 1 tablet (10 mg total) by mouth 1 (one) time each day. 30 each 4 03/28/20 25 Active hydroCHLOROthia zide (HYDRODIURIL) 25 mg tablet Take 1 tablet (25 mg total) by mouth 1 (one) time each day. 30 each 11 5 09/21/19 26 Active fenofibrate (TRICOR) 48 mg tablet TAKE 1 TABLET(48 MG) BY MOUTH 1 TIME EACH DAY 30 tablet 1 5 Active Additional Information Patient not taking.Reported on 02/17/2025 lisinopriL (PRINIVIL,ZESTR IL) 20 mg tablet TAKE 1 TABLET BY MOUTH DAILY 90 tablet 3 5 Active dilTIAZem (Tiadylt ER) 240 mg 24 hr capsule Take 1 capsule (240 mg total) by mouth 1 (one) time each day. 90 capsule 1 5 Active Active Problems Problem Noted Date Diagnosed [...] begin ischemic evaluation DVT (deep venous thrombosis) ([facility] V24, [facility] V28) 05/02/2022 Overview (02/08/2024): Last Assessment [...] this. Obstructive sleep apnea 07/22/2021 Overview (02/08/2024): [facility] Home Sleep Apnea Test: Date 07/16/2021; Wt 175#; BMI 29; KARYNA (AHI) 27, AI 22; HI 4; Unclassified apneas 0; Obstructive apneas 66; Central apneas 2; Mixed apneas 0; hypopneas 12; average oxygen saturation 88% (lowest 70% with saturations <88% for 5% or more of study) [facility] treatment polysomnogram 09/25/2021. Weight 178; BMI 29. [...] the next week or so. Aortic aneurysm (CMS/HCC V24) 06/26/2021 Overview (09/20/2024): - 4.1cm 09/2022 -4.2 cm 01/2024 Assessment & Plan (09/20/2024 9:05 AM EDT): The patient's aorta size is stable across multiple echocardiograms. Could consider updated testing in 2025. Tachycardia 04/01/2021 Overview (09/20/2024): - average HR on holter 2021 116 - on diltiazem, listed allergies to metoprolol -Average heart rate 112 10/2023 Assessment & Plan (02/17/2025 8:13 AM EDT): Patient's heart rate is well-controlled on his current dose of diltiazem. Continue the same Assessment & Plan (09/20/2024 9:06 AM EDT): The patient's heart rate is better controlled of late on his current dose diltiazem. He has a listed allergy to metoprolol. For now, continue diltiazem at current dose Palpitations 03/27/2021 Assessment & Plan (02/17/2025 8:13 AM EDT): The patient's palpitations have resolved with elimination of caffeine and better blood pressure control with increased dose of his hydrochlorothiazide. He will make further attempts to increase his exercise. He will let me know if his symptoms change/recur. Overweight (BMI 25.0-29.9) 12/25/2020 [place] spots 07/17/2020 Overview (02/08/2024): On penis (Dr. Willard) Hepatic steatosis 09/14/2019 Diverticulosis of colon 09/14/2019 Epididymal cyst 05/05/2019 Overview (02/08/2024): Right side, 8mm imagining 04/2019, referred to urology Hypertension 08/25/2016 Assessment & Plan (02/17/2025 8:14 AM EDT): Blood pressure well-controlled with improvement in his symptoms on increased dose of hydrochlorothiazide. Continue diltiazem, hydrochlorothiazide and lisinopril. Update his BMP with upcoming labs. Assessment & Plan (09/20/2024 9:08 AM EDT): [...] artery ultrasound. Hypertriglyceridemia 08/04/2016 Assessment & Plan (02/17/2025 8:14 AM EDT): Patient's triglycerides were elevated on last check in September. He wonders if he can come off the fenofibrate as he has made significant changes in his diet. Will update fasting labs. Will also update his TSH as thyroid abnormalities can sometimes make lipid panels more difficult to control. I will let him know the results of his testing once it is available to me, and together we can decide on fibrate therapy. Assessment & Plan (09/20/2024 9:08 AM EDT): The patient has been prescribed fibrate therapy by his PCP. He continues on statin. Update fasting lipid profile with his BMP in the next couple of weeks. Gynecomastia 09/08/2013 Breast mass 09/08/2013 Encounters Date Type Department Care Team Description 02/17/2025 7:40 AM EDT Office Visit [facility] [address] [facility] [address] [place] [address] Brittany Walters NP Palpitations (Primary Dx); Hypertriglyceridemia; Primary hypertension; Tachycardia from Last 3 Months Surgical History Surgery Date Site/Laterality Comments MULTIPLE TOOTH EXTRACTIONS PROCEDURE: HISTORICAL DENTAL EXTRACTION COLONOSCOPY 11/02/2015 PROCEDURE: HISTORICAL COLONOSCOPY; COMMENT: Normal examination UPPER GASTROINTESTINAL ENDOSCOPY 11/02/2015 PROCEDURE: NM UPPER GI ENDOSCOPY PERFORMED; COMMENT: Minimal visible erosive esophagitis, confirmed on biopsy. ESOPHAGOGASTRODUODENOSCOPY PROCEDURE: NM EGD TRANSORAL BIOPSY SINGLE/MULTIPLE; COMMENT: Performed on [...] for your loved ones. For example, child and adolescent psychologist or elderly care for an older adult? [...] Sign Reading Time Taken Comments Blood Pressure 122/80 02/17/2025 7:40 AM EDT Pulse 89 02/17/2025 7:40 AM EDT Temperature 36.2 C (97.1 F) 07/13/2024 9:01 AM EDT Respiratory Rate 16 07/13/2024 9:01 AM EDT Oxygen Saturation 96% 02/17/2025 7:40 AM EDT Inhaled Oxygen Concentration - - Weight 82.6 kg (182 lb 3.2 oz) 02/17/2025 7:40 A M EDT Height 165.1 cm (5' 5 ) 02/17/2025 7:40 AM EDT Body Mass Index 30.32 02/17/2025 7:40 AM EDT Plan of Treatment Health Maintenance Due Date Last Done Comments Hepatitis B Vaccines (1 of 3 - 19+ 3-dose series) 1994 HIV Screening 04/05/2022 COVID-19 Vaccine ( - 2023- season) 2024 Influenza Vaccine (#1) 2024 Social Influencers of Health Screening 07/12/2025 07/12/2024 Hypertension/CHF/CAD Annual BMP Blood Test 09/29/2025 09/29/2024, 05/23/2024, 03/23/2024, Additional history exists Cholesterol Screening (Lipid Panel) 09/29/2029 09/29/2024, 03/23/2024, 03/23/2024, Additional history exists Colorectal Cancer Screening: Colonoscopy 05/29/2031 05/29/2021 DTaP,Tdap,and Td Vaccines (3 - Td or Tdap) 02/16/2035 02/16/2025, 06/30/2021 RSV Immunization Adult Patients (1 - [...] Procedure Name Priority Date/Time Associated Diagnosis Comments ECG 12-LEAD Routine 02/17/2025 8:15 AM EDT Palpitations BASIC METABOLIC PANEL Routine 09/29/2024 9:47 AM EDT Primary hypertension LIPID PANEL WITH REFLEX TO DIRECT LDL Routine 09/29/2024 9:47 AM EDT Hypertriglyceridemia HM COLONOSCOPY Routine 05/29/2021 HEPATITIS C SCREENING Routine 12/25/2020 from Last 3 Months or Most Recently Relevant to Health Maintenance Results * ECG 12 lead (02/17/2025 8:15 AM EDT) 02/17/2025 7:44 AM EDT 02/17/2025 8:11 AM EDT Brittany Walters NP ECG ORDERABLES Final Result GEMUSE * (ABNORMAL) Lipid panel with reflex to direct LDL (09/29/2024 9:47 AM EDT) Cholesterol 166 0 - 200 mg/dL LAB CHEMISTRY METHOD 09/29/2024 12:59 PM EDT [facility] Triglycerides 260(H) 0 - 150 mg/dL LAB CHEMISTRY METHOD 09/29/2024 12:59 PM EDT [facility] HDL 40 >=40 mg/dL LAB CHEMISTRY METHOD 09/29/2024 12:59 PM EDT [facility] LDL Calculated 74 0 - 100 mg/dL LAB CHEMISTRY METHOD 09/29/2024 12:59 PM EDT [facility] VLDL Cholesterol Thor 52 mg/dL LAB CHEMISTRY METHOD 09/29/2024 12:59 PM EDT [facility] Non HDL Chol. (LDL+VLDL) 126 <145 mg/dL LAB CHEMISTRY METHOD 09/29/2024 12:59 PM [facility] Chol/HDL Ratio 4.2 0.0 - 4.4 LAB CHEMISTRY METHOD 09/29/2024 12:59 PM [facility] Blood Venous blood specimen / Unknown Venipuncture / Unknown 09/29/2024 9:47 AM EDT 09/29/2024 9:47 AM EDT us Brittany Walters NP LAB BLOOD ORDERABLES Final Resu lt [facility] [address] [place] [address], * Basic metabolic panel (09/29/2024 9:47 AM EDT) Sodium 134 133 - 145 mmol/L LAB CHEMISTRY METHOD 09/29/2024 12:59 PM [facility] Potassium 4.1 3.5 - 5.5 mmol/L LAB CHEMISTRY METHOD 09/29/2024 12:59 PM [facility] Chloride 105 96 - 110 mmol/L LAB CHEMISTRY METHOD 09/29/2024 12:59 PM [facility] CO2 21 21 - 32 mmol/L LAB CHEMISTRY METHOD 09/29/2024 12:59 PM [facility] Anion Gap 8 3 - 11 LAB CHEMISTRY METHOD 09/29/2024 12:59 PM [facility] Glucose 100 70 - 100 mg/dL LAB CHEMISTRY METHOD 09/29/2024 12:59 PM [facility] BUN 18 5 - 25 mg/dL LAB CHEMISTRY METHOD 09/29/2024 12:59 PM [facility] Creatinine 1.11 0.70 - 1.30 mg/dL LAB CHEMISTRY METHOD 09/29/2024 12:59 PM EDT [facility] eGFR 81 >=60 mL/min/1. 73m2 LAB CHEMISTRY METHOD 09/29/2024 12:59 PM EDT [facility] Comment:Calculation based on the Chronic Kidney Disease Epidemiology Collaboration (CKD-EPI) equation refit without adjustment for race. BUN/Creatinine Ratio 16.2 LAB CHEMISTRY METHOD 09/29/2024 12:59 PM EDT [facility] Calcium 9.3 8.5 - 10.5 mg/dL LAB CHEMISTRY METHOD 09/29/2024 12:59 PM EDT [facility] Blood Venous blood specimen / Unknown Venipuncture / Unknown 09/29/2024 9:47 AM EDT 09/29/2024 9:47 AM EDT Brittany Walters NP LAB BLOOD ORDERABLES Final Resu lt [facility] [address] [place] [address], * Colonoscopy (05/29/2021) Colonoscopy no interpretation abstracted Anatomical Region Laterality Modality Other Historical Provider HEALTH MAINTENANCE Final Result * Hepatitis C Screening (12/25/2020) Hepatitis C Screening abstracted Historical Provider HEALTH MAINTENANCE Final Result from Last 3 Months or Most Recently Relevant to Health Maintenance Insurance [facility] Care Teams Contract Post Office Clerk Relationship Specialty Start Date End Date Kobi Isidro MD [address] [place] [address] [phone] PCP - General Internal Medicine 02/14/25
== END 2025-02-24 08:36 | disposition home or self-care (01) ==
LOC: HO.HOSX 08:35
DX: S62.666D Nondisplaced fracture of distal phalanx of right little finger, subsequent encounter for fracture with routine healing (principal); Z79.2 Long term (current) use of antibiotics; W23.1XXD Caught, crushed, jammed, or pinched between stationary objects, subsequent encounter
CPT/HCPCS: 73130

== ENCOUNTER 2025-02-24 08:50 | Outpatient (AMB) | payer BC, SELFPAY ==
[2025-02-24 09:06] VITALS: BMI 29.1
--- NOTE | 2025-02-24 09:06 | MHC.OFFVIS ---
Vital Signs 02/24/25 09:06 Height 5 ft 5 in Weight 175 lb BMI 29.1 Intake Visit Reasons: FC-RT Small Distal Phalanx Fracture, DOI: 02/16/25 Intake Note: Henrik is a 49 year old right hand dominant male, new patient, who presents today for an ED follow up and evaluation of Right Small Distal Phalanx Fracture, DOI: 02/16/25. Patient reported to [facility] ED he accidentally closed his car door on the finger. Patient stated he attempted to remove the nail bed as it was lifted. At the ED, 1 suture was placed and the nailbed was reinserted. He was advised to take Tylenol and/or Ibuprofen PRN. He was also started on Augmentin. Today, patient reports he is taking Tylenol and his antibiotics. He complains of occasional pain at the DIP of his right small finger. He denies any discharge. Allergies ibuprofen Allergy (Verified 02/24/25 09:06) Hives metoprolol Allergy (Verified 02/24/25 09:06) Shortness of Breath HPI HPI FC-RT Small Distal Phalanx Fracture, DOI: 02/16/25: Details: Henrik is a 49 year old right hand dominant male, new patient, who presents today for an ED follow up and evaluation of Right Small Distal Phalanx Fracture, DOI: 02/16/25. Patient reported to [facility] ED he accidentally closed his car door on the finger. Patient stated he attempted to remove the nail bed as it was lifted. At the ED, 1 suture was placed and the nailbed was reinserted. He was advised to take Tylenol and/or Ibuprofen PRN. He was also started on Augmentin. Today, patient reports he is taking Tylenol and his antibiotics. He complains of occasional pain at the DIP of his right small finger. He denies any discharge. [facility] Social History (Updated 02/24/25 @ 09:08 by PEDRO Reaves) Alcohol intake: current Alcohol intake frequency: holidays/special occasions only Alcohol type: wine Patient Tobacco Use Status: Former Tobacco user Current occupational status: employed Current occupation: rt handed, Sales Review of Systems Const All systems reviewed & are unremarkable except as noted in HPI and below Physical Exam Vital Signs: BMI result Body Mass Index 29.1 Extrem Other: Patient is alert, oriented, and in no acute distress. Neuro: Normal sensation of the tips of all digits of the right hand at this time Vascular: Cap refill brisk Pain: Minimal tenderness to palpation about the distal aspect of the right small finger at the level of the fracture and laceration No pain with range of motion of the right hand ROM: While not asked, patient does demonstrate the ability to make a closed fist and extend all digits of the right hand fully Skin: Approximately 2 cm laceration noted on the distal aspect of the right small finger with surrounding ecchymosis General: No ecchymosis, erythema, or evidence of infection. Psych: Appears grossly normal Affect normal Attitude cooperative Results Reviewed Results Reviewed: X-rays obtained in the office today and independently reviewed by me, Nick Prescott PA-C, demonstrate nondisplaced distal tuft fracture of the right small finger. Assessment & Plan Assessment & Plan (1) Open fracture of phalanx of right little finger: Code(s): S62.606B - Fracture of unspecified phalanx of right little finger, initial encounter for open fracture Category: Medical Plan 1. Open fracture of right small finger Date of injury 02/16/2025 Patient is educated about this condition Patient is educated about the typical recovery course Suture can not be removed at this time, as it is holding a nail in place No active signs of ongoing infection at this time, however I do feel it is best for the patient to take antibiotics for another week No splinting necessary, should keep dressing on while out and about No heavy lifting with the right hand Follow-up in 1 week for wound check, sooner with any acute concerns Orders: Orders XR hand RT min 3V Today M79.641 - Pain in right hand Medications: Refilled amoxicillin-pot clavulanate 875-125 mg 1 tab PO BID 14 tabs 0RF 7 days Coding Level of Care Code New Pt Level 3 (58232) Diagnoses Open fracture of phalanx of right little finger S62.606B
== END 2025-02-24 09:21 | disposition home or self-care (01) ==
LOC: HO.HOS 08:51
PROVIDERS: PCP Internal Medicine
DX: S62.606B Fracture of unspecified phalanx of right little finger, initial encounter for open fracture (principal)
CPT/HCPCS: 99203

== ENCOUNTER → 2025-02-24 09:01 | Outpatient (BNV) | payer BC, SELFPAY | PROVIDERS: Visit Provider Radiology Diagnostic Radiology | DX: S62.636A Displaced fracture of distal phalanx of right little finger, initial encounter for closed fracture (principal) | CPT/HCPCS: 73130 ==

== ENCOUNTER 2025-03-06 07:50 | Outpatient (REF) | payer BC, SELFPAY ==
--- OUTSIDE RECORDS SUMMARY | 2025-03-06 07:53 | XMS_ITS | Clinical Summary ---
Author Organization [address] [facility] Address [address] [place] [address] Phone Care Team Providers Care Business Services Intern Name Role Phone Kobi Isidro MD Primary Care Provider [phone] Allergies Active Allergy Reactions Criticality Noted Date Comments Apple Rash 03/15/2013 Flavoring Agent 04/01/2021 Ibuprofen 01/23/2021 Metoprolol Hives 10/28/2023 Milk 04/01/2021 Other 03/15/2013 Some vegetables Fruit (Generic Multi-vegetable Shellfish Allergy Shellfish Derived 09/20/2024 [place] 10/14/2013 Medications amitriptyline (ELAVIL) 25 mg tablet [...] begin ischemic evaluation DVT (deep venous thrombosis) ([facility] V24, [facility] V28) 05/02/2022 Overview (02/08/2024): Last Assessment [...] this. Obstructive sleep apnea 07/22/2021 Overview (02/08/2024): [facility] Home Sleep Apnea Test: Date 07/16/2021; Wt 175#; BMI 29; KARYNA (AHI) 27, AI 22; HI 4; Unclassified apneas 0; Obstructive apneas 66; Central apneas 2; Mixed apneas 0; hypopneas 12; average oxygen saturation 88% (lowest 70% with saturations <88% for 5% or more of study) [facility] treatment polysomnogram 09/25/2021. Weight 178; BMI 29. [...] his symptoms change/recur. Overweight (BMI 25.0-29.9) 12/25/2020 [place] spots 07/17/2020 Overview (02/08/2024): On penis (Dr. [...] Description 02/17/2025 7:40 AM EDT Office Visit [facility] [address] [facility] [address] [place] [address] Brittany Walters NP Palpitations (Primary Dx); Hypertriglyceridemia; Primary hypertension; Tachycardia from Last 3 Months Surgical History Surgery Date Site/Laterality Comments MULTIPLE TOOTH EXTRACTIONS PROCEDURE: HISTORICAL DENTAL EXTRACTION COLONOSCOPY 11/02/2015 PROCEDURE: HISTORICAL COLONOSCOPY; COMMENT: Normal examination UPPER GASTROINTESTINAL ENDOSCOPY 11/02/2015 PROCEDURE: MT UPPER GI ENDOSCOPY PERFORMED; COMMENT: Minimal visible erosive esophagitis, confirmed on biopsy. ESOPHAGOGASTRODUODENOSCOPY PROCEDURE: MT EGD TRANSORAL BIOPSY SINGLE/MULTIPLE; COMMENT: Performed on [...] Years Used Date Smoking Tobacco: Former Cigarettes 0 Q uit: 03/15/2010 Smokeless Tobacco: Never Tobacco [...] your loved ones. For example, child care aide or elderly care for an older adult? [...] series) 1994 HIV Screening 04/05/2022 COVID-19 Vaccine (1 - 2024- season) 2024 Influenza Vaccine (#1) 2024 Social [...] LAB CHEMISTRY METHOD 09/29/2024 12:59 PM EDT [facility] Triglycerides 260(H) 0 - 150 mg/dL LAB CHEMISTRY METHOD 09/29/2024 12:59 PM EDT [facility] HDL 40 >=40 mg/dL LAB CHEMISTRY METHOD 09/29/2024 12:59 PM EDT [facility] LDL Calculated 74 0 - 100 mg/dL LAB CHEMISTRY METHOD 09/29/2024 12:59 PM EDT [facility] VLDL Cholesterol Thor 52 mg/dL LAB CHEMISTRY METHOD 09/29/2024 12:59 PM EDT [facility] Non HDL Chol. (LDL+VLDL) 126 <145 mg/dL LAB CHEMISTRY METHOD 09/29/2024 12:59 PM T [facility] Chol/HDL Ratio 4.2 0.0 - 4.4 LAB CHEMISTRY METHOD 09/29/2024 12:59 PM [facility] Blood Venous blood specimen / Unknown Venipuncture / Unknown 09/29/2024 9:47 AM EDT 09/29/2024 9:47 AM EDT us Brittany Walters NP LAB BLOOD ORDERABLES Final Resu lt [facility] [address] [place] [address], * Basic metabolic panel (09/29/2024 9:47 AM EDT) Sodium 134 133 - 145 mmol/L LAB CHEMISTRY METHOD 09/29/2024 12:59 PM [facility] Potassium 4.1 3.5 - 5.5 mmol/L LAB CHEMISTRY METHOD 09/29/2024 12:59 PM [facility] Chloride 105 96 - 110 mmol/L LAB CHEMISTRY METHOD 09/29/2024 12:59 PM [facility] CO2 21 21 - 32 mmol/L LAB CHEMISTRY METHOD 09/29/2024 12:59 PM [facility] Anion Gap 8 3 - 11 LAB CHEMISTRY METHOD 09/29/2024 12:59 PM [facility] Glucose 100 70 - 100 mg/dL LAB CHEMISTRY METHOD 09/29/2024 12:59 PM [facility] BUN 18 5 - 25 mg/dL LAB CHEMISTRY METHOD 09/29/2024 12:59 PM [facility] Creatinine 1.11 0.70 - 1.30 mg/dL LAB CHEMISTRY METHOD 09/29/2024 12:59 PM EDT [facility] eGFR 81 >=60 mL/min/1. 73m2 LAB CHEMISTRY METHOD 09/29/2024 12:59 PM EDT [facility] Comment:Calculation based on the Chronic Kidney Disease Epidemiology Collaboration (CKD-EPI) equation refit without adjustment for race. BUN/Creatinine Ratio 16.2 LAB CHEMISTRY METHOD 09/29/2024 12:59 PM EDT [facility] Calcium 9.3 8.5 - 10.5 mg/dL LAB CHEMISTRY METHOD 09/29/2024 12:59 PM EDT [facility] Blood Venous blood specimen / Unknown Venipuncture / Unknown 09/29/2024 9:47 AM EDT 09/29/2024 9:47 AM EDT Brittany Walters NP LAB BLOOD ORDERABLES Final Resu lt [facility] [address] [place] [address], * Colonoscopy (05/29/2021) Colonoscopy no interpretation abstracted Anatomical Region Laterality Modality Other Historical Provider HEALTH MAINTENANCE Final Result * Hepatitis C Screening (12/25/2020) Hepatitis C Screening abstracted Historical Provider HEALTH MAINTENANCE Final Result from Last 3 Months or Most Recently Relevant to Health Maintenance Insurance [facility] Care Teams Business Services Intern Relationship Specialty Start Date End Date Kobi Isidro MD [address] [place] [address] [phone] PCP - General Internal Medicine 02/14/25
--- OUTSIDE RECORDS SUMMARY | 2025-03-06 07:53 | XMS_ITS | Clinical Summary ---
Author Organization [facility] Address [address] [place], [place] [id number] Care Team Providers Care Concert Singer Name Role Phone Kobi Isidro MD Primary Care Provider [phone] Allergies Active Allergy Reactions Criticality Noted Date [...] age to complete this topic Care Teams Concert Singer Relationship Specialty Start Date End Date Kobi Isidro MD PCP - General Internal Medicine 06/10/22
== END 2025-03-06 07:51 | disposition home or self-care (01) ==
LOC: HO.HOSX 07:50
DX: Z13.89 Encounter for screening for other disorder (principal)

== ENCOUNTER 2025-03-07 07:23 | Outpatient (REF) | payer BC, SELFPAY ==
--- NOTE | ~2025-03-07 | XR_ITS ---
EXAMINATION: XR HAND, RIGHT CLINICAL INFORMATION: M79.641 - Pain in right hand COMPARISON: Previous x-rays January 2025 TECHNIQUE: PA, lateral, and oblique views of the right hand. FINDINGS: Comminuted fracture of the distal tuft of the fifth finger appears unchanged. No other fracture. Normal joint spaces. Mild periarticular osteopenia. Soft tissue swelling overlying the distal fifth finger. XR/XR hand RT min 3V IMPRESSION: No change in comminuted fracture of the distal tuft of the right fifth finger from recent exams. Electronically signed by: Georgie Mata MD 03/07/2025 09:57 AM EST
--- OUTSIDE RECORDS SUMMARY | 2025-03-07 07:25 | XMS_ITS | Clinical Summary ---
Author Organization [address] [facility] Address [address] [place] [address] Phone Care Team Providers Care Water Resources Project Manager Name Role Phone Kobi Isidro MD Primary Care Provider [phone] Allergies Active Allergy Reactions Criticality Noted Date Comments Apple Rash 03/15/2013 Flavoring Agent 04/01/2021 Ibuprofen 01/23/2021 Metoprolol Hives 10/28/2023 Milk 04/01/2021 Other 03/15/2013 Some vegetables Fruit (Generic Multi-vegetable Shellfish Allergy Shellfish Derived 09/20/2024 [place] 10/14/2013 Medications amitriptyline (ELAVIL) 25 mg tablet [...] begin ischemic evaluation DVT (deep venous thrombosis) ([facility] V24, [facility] V28) 05/02/2022 Overview (02/08/2024): Last Assessment [...] this. Obstructive sleep apnea 07/22/2021 Overview (02/08/2024): [facility] Home Sleep Apnea Test: Date 07/16/2021; Wt 175#; BMI 29; KARYNA (AHI) 27, AI 22; HI 4; Unclassified apneas 0; Obstructive apneas 66; Central apneas 2; Mixed apneas 0; hypopneas 12; average oxygen saturation 88% (lowest 70% with saturations <88% for 5% or more of study) [facility] treatment polysomnogram 09/25/2021. Weight 178; BMI 29. [...] Description 02/17/2025 7:40 AM EDT Office Visit [facility] [address] [facility] [address] [place] [address] Brittany Walters NP Palpitations (Primary Dx); Hypertriglyceridemia; Primary hypertension; Tachycardia from Last 3 Months Surgical History Surgery Date Site/Laterality Comments MULTIPLE TOOTH EXTRACTIONS PROCEDURE: HISTORICAL DENTAL EXTRACTION COLONOSCOPY 11/02/2015 PROCEDURE: HISTORICAL COLONOSCOPY; COMMENT: Normal examination UPPER GASTROINTESTINAL ENDOSCOPY 11/02/2015 PROCEDURE: [place] UPPER GI ENDOSCOPY PERFORMED; COMMENT: Minimal visible erosive esophagitis, confirmed on biopsy. ESOPHAGOGASTRODUODENOSCOPY PROCEDURE: [place] EGD TRANSORAL BIOPSY SINGLE/MULTIPLE; COMMENT: Performed on [...] care for your loved ones. For example, childbirth educator or elderly care for an older adult? [...] LAB CHEMISTRY METHOD 09/29/2024 12:59 PM EDT [facility] Triglycerides 260(H) 0 - 150 mg/dL LAB CHEMISTRY METHOD 09/29/2024 12:59 PM EDT [facility] HDL 40 >=40 mg/dL LAB CHEMISTRY METHOD 09/29/2024 12:59 PM EDT [facility] LDL Calculated 74 0 - 100 mg/dL LAB CHEMISTRY METHOD 09/29/2024 12:59 PM EDT [facility] VLDL Cholesterol Thor 52 mg/dL LAB CHEMISTRY METHOD 09/29/2024 12:59 PM EDT [facility] Non HDL Chol. (LDL+VLDL) 126 <145 mg/dL LAB CHEMISTRY METHOD 09/29/2024 12:59 PM T [facility] Chol/HDL Ratio 4.2 0.0 - 4.4 LAB CHEMISTRY METHOD 09/29/2024 12:59 PM [facility] Blood Venous blood specimen / Unknown Venipuncture / Unknown 09/29/2024 9:47 AM EDT 09/29/2024 9:47 AM EDT us Brittany Walters NP LAB BLOOD ORDERABLES Final Resu lt [facility] [address] [place] [address], * Basic metabolic panel (09/29/2024 9:47 AM EDT) Sodium 134 133 - 145 mmol/L LAB CHEMISTRY METHOD 09/29/2024 12:59 PM [facility] Potassium 4.1 3.5 - 5.5 mmol/L LAB CHEMISTRY METHOD 09/29/2024 12:59 PM [facility] Chloride 105 96 - 110 mmol/L LAB CHEMISTRY METHOD 09/29/2024 12:59 PM [facility] CO2 21 21 - 32 mmol/L LAB CHEMISTRY METHOD 09/29/2024 12:59 PM [facility] Anion Gap 8 3 - 11 LAB CHEMISTRY METHOD 09/29/2024 12:59 PM [facility] Glucose 100 70 - 100 mg/dL LAB CHEMISTRY METHOD 09/29/2024 12:59 PM [facility] BUN 18 5 - 25 mg/dL LAB CHEMISTRY METHOD 09/29/2024 12:59 PM [facility] Creatinine 1.11 0.70 - 1.30 mg/dL LAB CHEMISTRY METHOD 09/29/2024 12:59 PM EDT [facility] eGFR 81 >=60 mL/min/1. 73m2 LAB CHEMISTRY METHOD 09/29/2024 12:59 PM EDT [facility] Comment:Calculation based on the Chronic Kidney Disease Epidemiology Collaboration (CKD-EPI) equation refit without adjustment for race. BUN/Creatinine Ratio 16.2 LAB CHEMISTRY METHOD 09/29/2024 12:59 PM EDT [facility] Calcium 9.3 8.5 - 10.5 mg/dL LAB CHEMISTRY METHOD 09/29/2024 12:59 PM EDT [facility] Blood Venous blood specimen / Unknown Venipuncture / Unknown 09/29/2024 9:47 AM EDT 09/29/2024 9:47 AM EDT Brittany Walters NP LAB BLOOD ORDERABLES Final Resu lt [facility] [address] [place] [address], * Colonoscopy (05/29/2021) Colonoscopy no interpretation abstracted Anatomical Region Laterality Modality Other Historical Provider HEALTH MAINTENANCE Final Result * Hepatitis C Screening (12/25/2020) Hepatitis C Screening abstracted Historical Provider HEALTH MAINTENANCE Final Result from Last 3 Months or Most Recently Relevant to Health Maintenance Insurance [facility] Care Teams Water Resources Project Manager Relationship Specialty Start Date End Date Kobi Isidro MD [address] [place] [phone] PCP - General Internal Medicine 02/14/25
== END 2025-03-07 07:24 | disposition home or self-care (01) ==
LOC: HO.HOSX 07:23
DX: S62.606B Fracture of unspecified phalanx of right little finger, initial encounter for open fracture (principal); X58.XXXA Exposure to other specified factors, initial encounter
CPT/HCPCS: 73130

== ENCOUNTER 2025-03-07 08:55 | Outpatient (AMB) | payer BC, SELFPAY ==
--- NOTE | 2025-03-07 09:01 | A.OFFVIS_ITS ---
Vital Signs 03/07/25 09:02 Height 5 ft 5 in Weight 175 lb BMI 29.1 Intake Visit Reasons: OV-RT Small Distal Phalanx Fracture, DOI: 02/16/25 Intake Note: Henrik is a 49 year old right hand dominant male who presents today for a Wound Check status post Right Small Distal Phalanx Fracture, DOI: 02/16/25. At his last visit, he was notified suture cannot be removed as it is holding nail in place. He was also informed no splinting is necessary but should keep dressing on while out. No heavy lifting of the right hand. Antibiotics refilled. Today, patient reports he has completed his antibiotics. He takes Ibuprofen occasionally with relief of pain. He denies any numbness or tingling. Patient denies any discharge. Allergies ibuprofen Allergy (Verified 03/07/25 09:07) Hives metoprolol Allergy (Verified 03/07/25 09:07) Shortness of Breath HPI HPI OV-RT Small Distal Phalanx Fracture, DOI: 02/16/25: Details: Henrik is a 49 year old right hand dominant male who presents today for a Wound Check status post Right Small Distal Phalanx Fracture, DOI: 02/16/25. At his last visit, he was notified suture cannot be removed as it is holding nail in place. He was also informed no splinting is necessary but should keep dressing on while out. No heavy lifting of the right hand. Antibiotics refilled. Today, patient reports he has completed his antibiotics. He takes Ibuprofen occasionally with relief of pain. He denies any numbness or tingling. Patient denies any discharge. Patient overall reports significant improvement. COUNT INCLUDES THE [facility] Social History Alcohol intake: current Alcohol intake frequency: holidays/special occasions only Alcohol type: wine Patient Tobacco Use Status: Former Tobacco user Current occupational status: employed Current occupation: rt handed, Sales Review of Systems Const All systems reviewed & are unremarkable except as noted in HPI and below Physical Exam Vital Signs: BMI result Body Mass Index 29.1 Extrem Other: Patient is alert, oriented, and in no acute distress. Neuro: Normal sensation of the tips of all digits of the right hand at this time Vascular: Cap refill brisk Pain: No tenderness to palpation about the distal aspect of the right small finger at the level of the fracture and laceration No pain with range of motion of the right hand ROM: Patient is able to make a closed fist and extend all digits of the right hand fully Skin: Approximately 2 cm laceration noted on the distal aspect of the right small finger with surrounding ecchymosis, well healed Sutures in place holding the nail of the right small finger in place General: No ecchymosis, erythema, or evidence of infection. Psych: Appears grossly normal Affect normal Attitude cooperative Results Reviewed Results Reviewed: X-rays obtained in the office today and independently reviewed by me, Nick Prescott PA-C, demonstrate nondisplaced distal tuft fracture of the right small finger. Assessment & Plan Assessment & Plan (1) Open fracture of phalanx of right little finger: Code(s): S62.606B - Fracture of unspecified phalanx of right little finger, initial encounter for open fracture Category: Medical Plan 1. Open fracture of right small finger Date of injury 02/16/2025 Patient is educated about this condition Patient is educated about the typical recovery course Suture removed today without issue No further antibiotics necessary No splinting necessary, should keep dressing on while out and about No heavy lifting with the right hand Follow-up in 2 week for wound check, sooner with any acute concerns Orders: Orders XR hand RT min 3V Today M79.641 - Pain in right hand Coding Level of Care Code Global (74639) Diagnoses Open fracture of phalanx of right little finger S62.606B
[2025-03-07 09:02] VITALS: BMI 29.1
== END 2025-03-07 09:20 | disposition home or self-care (01) ==
LOC: HO.HOS 08:55
DX: S62.606B Fracture of unspecified phalanx of right little finger, initial encounter for open fracture (principal)
CPT/HCPCS: 99024

== ENCOUNTER → 2025-03-07 08:57 | Outpatient (BNV) | payer BC, SELFPAY | PROVIDERS: Visit Provider Radiology Diagnostic Radiology | DX: M79.641 Pain in right hand (principal) | CPT/HCPCS: 73130 ==

== ENCOUNTER 2025-04-19 07:43 | Outpatient (REF) | payer BC, SELFPAY ==
--- NOTE | ~2025-04-19 | XR_ITS ---
EXAMINATION: XR HAND, RIGHT CLINICAL INFORMATION: M79.641 - Pain in right hand COMPARISON: X-ray 03/07/2025 TECHNIQUE: PA, lateral, and oblique views of the right hand. FINDINGS: There is decreased conspicuity of the fracture planes of the comminuted fracture of the distal tuft of the fifth finger. Mild soft tissue swelling of the distal fifth finger.. No new acute fractures. Joint spaces are preserved. XR/XR hand RT min 3V IMPRESSION: Healing changes in the comminuted fracture of the distal tuft of the fifth finger. Electronically signed by: Oscar Chiang MD 04/21/2025 07:27 AM TARAH
--- OUTSIDE RECORDS SUMMARY | 2025-04-19 07:46 | XMS_ITS | Clinical Summary ---
Author Organization [address] [facility] Address [address] [place] [address] Phone Care Team Providers Care Mold Stamper Name Role Phone Kobi Isidro MD Primary Care Provider [phone] Allergies Active Allergy Reactions Criticality Noted Date Comments Apple Rash 03/15/2013 Flavoring Agent 04/01/2021 Ibuprofen 01/23/2021 Metoprolol Hives 10/28/2023 Milk 04/01/2021 Other 03/15/2013 Some vegetables Fruit (Generic Multi-vegetable Shellfish Allergy Shellfish Derived 09/20/2024 [place] 10/14/2013 Medications amitriptyline (ELAVIL) 25 mg tablet Take 1 Tablet by mouth at bedtime. Active atorvastatin (LIPITOR) 10 mg tablet Take 1 tablet (10 mg total) by mouth 1 (one) time each day. 30 each 11 4 Active hydroCHLOROthia zide (HYDRODIURIL) 25 mg tablet [...] (one) time each day. 90 capsule 1 Active Active Problems Problem Noted Date Diagnosed [...] begin ischemic evaluation DVT (deep venous thrombosis) 05/02/2022 Overview (02/08/2024): Last Assessment & Plan: He did have a DVT. He is on Eliquis. I did tell him he needs to follow-up with his PCP regarding the timeframe that he should be on this. He needs to follow-up with his PCP for refills of his medications as I do not treat DVTs. He understands this. Obstructive sleep apnea 07/22/2021 Overview (02/08/2024): [facility] Home Sleep Apnea Test: Date 07/16/2021; Wt 175#; BMI 29; KARYNA (AHI) 27, AI 22; HI 4; Unclassified apneas 0; Obstructive apneas 66; Central apneas 2; Mixed apneas 0; hypopneas 12; average oxygen saturation 88% (lowest 70% with saturations <88% for 5% or more of study) [facility] treatment polysomnogram 09/25/2021. Weight 178; [...] the next week or so. Aortic aneurysm 06/26/2021 Overview (09/20/2024): - 4.1cm 09/2022 -4.2 [...] his symptoms change/recur. Overweight (BMI 25.0-29.9) 12/25/2020 [place] spots 07/17/2020 Overview (02/08/2024): On penis (Dr. [...] Description 02/17/2025 7:40 AM EDT Office Visit [facility] [address] [facility] [address] [place] [address] Brittany Walters NP Palpitations (Primary Dx); Hypertriglyceridemia; Primary hypertension; Tachycardia from Last 3 Months Surgical History Surgery Date Site/Laterality Comments MULTIPLE TOOTH EXTRACTIONS PROCEDURE: HISTORICAL DENTAL EXTRACTION COLONOSCOPY 11/02/2015 PROCEDURE: HISTORICAL COLONOSCOPY; COMMENT: Normal examination UPPER GASTROINTESTINAL ENDOSCOPY 11/02/2015 PROCEDURE: [place] UPPER GI ENDOSCOPY PERFORMED; COMMENT: Minimal visible erosive esophagitis, confirmed on biopsy. ESOPHAGOGASTRODUODENOSCOPY PROCEDURE: ID EGD TRANSORAL BIOPSY SINGLE/MULTIPLE; COMMENT: Performed on [...] care for your loved ones. For example, children's program coordinator or elderly care for an older adult? [...] on file Sexual Orientation Not on file Last Filed Vital Signs [...] ECG 12 lead (02/17/2025 8:15 AM EDT) Ventricular Rate ECG 89 BPM GEMUSE Atrial Rate 89 BPM GEMUSE P-R Interval 134 ms GEMUSE QRS Duration 82 ms GEMUSE Q-T Interval 364 ms GEMUSE QTc 442 ms GEMUSE P Wave Randolph 65 degrees GEMUSE R Randolph -58 degrees GEMUSE T Randolph 47 degrees GEMUSE ECG Interpretation Normal sinus rhythm with sinus arrhythmia Left axis deviation Abnormal ECG When compared with ECG of 08-FEB-2024 10:57, No significant change was found Confirmed by OMKAR MCDONALD ([id number]) on 04/02/2025 10:22:26 PM GEMUSE 02/17/2025 7:44 AM EDT 04/02/2025 10:22 PM EST us Brittany Walters NP ECG ORDERABLES Edited Result - Final GEMUSE * (ABNORMAL) Lipid panel with reflex to direct LDL (09/29/2024 9:47 AM EDT) Cholesterol 166 0 - 200 mg/dL LAB CHEMISTRY METHOD 09/29/2024 12:59 PM EDT [facility] Triglycerides 260(H) 0 - 150 mg/dL LAB CHEMISTRY METHOD 09/29/2024 12:59 PM EDT [facility] HDL 40 >=40 mg/dL LAB CHEMISTRY METHOD 09/29/2024 12:59 PM EDT [facility] LDL Calculated 74 0 - 100 mg/dL LAB CHEMISTRY METHOD 09/29/2024 12:59 PM T [facility] VLDL Cholesterol Thor 52 mg/dL LAB CHEMISTRY METHOD 09/29/2024 12:59 PM EDT [facility] Non HDL Chol. (LDL+VLDL) 126 <145 mg/dL LAB CHEMISTRY METHOD 09/29/2024 12:59 PM [facility] Chol/HDL Ratio 4.2 0.0 - 4.4 LAB CHEMISTRY METHOD 09/29/2024 12:59 PM [facility] Blood Venous blood specimen / Unknown Venipuncture / Unknown 09/29/2024 9:47 AM EDT 09/29/2024 9:47 AM EDT us Brittany Walters [employer] LAB BLOOD ORDERABLES Final Resu lt [facility] [address] [place] [address], * Basic metabolic panel (09/29/2024 9:47 AM EDT) Sodium 134 133 - 145 mmol/L LAB CHEMISTRY METHOD 09/29/2024 12:59 PM [facility] Potassium 4.1 3.5 - 5.5 mmol/L LAB CHEMISTRY METHOD 09/29/2024 12:59 PM [facility] Chloride 105 96 - 110 mmol/L LAB CHEMISTRY METHOD 09/29/2024 12:59 PM [facility] CO2 21 21 - 32 mmol/L LAB CHEMISTRY METHOD 09/29/2024 12:59 PM [facility] Anion Gap 8 3 - 11 LAB CHEMISTRY METHOD 09/29/2024 12:59 PM EDT [facility] Glucose 100 70 - 100 mg/dL LAB CHEMISTRY METHOD 09/29/2024 12:59 PM EDT [facility] BUN 18 5 - 25 mg/dL LAB CHEMISTRY METHOD 09/29/2024 12:59 PM EDT [facility] Creatinine 1.11 0.70 - 1.30 mg/dL LAB CHEMISTRY METHOD 09/29/2024 12:59 PM EDT [facility] eGFR 81 >=60 mL/min/1. 73m2 LAB CHEMISTRY METHOD 09/29/2024 12:59 PM EDT [facility] Comment:Calculation based on the Chronic Kidney Disease Epidemiology Collaboration (CKD-EPI) equation refit without adjustment for race. BUN/Creatinine Ratio 16.2 LAB CHEMISTRY METHOD 09/29/2024 12:59 PM EDT [facility] Calcium 9.3 8.5 - 10.5 mg/dL LAB CHEMISTRY METHOD 09/29/2024 12:59 PM EDT [facility] Blood Venous blood specimen / Unknown Venipuncture / Unknown 09/29/2024 9:47 AM EDT 09/29/2024 9:47 AM EDT Brittany Walters NP LAB BLOOD ORDERABLES Final Resu lt [facility] [address] [place] [address], * Colonoscopy (05/29/2021) Colonoscopy no interpretation abstracted Anatomical Region Laterality Modality Other Historical Provider HEALTH MAINTENANCE Final Result * Hepatitis C Screening (12/25/2020) Hepatitis C Screening abstracted Historical Provider HEALTH MAINTENANCE Final Result from Last 3 Months or Most Recently Relevant to Health Maintenance Insurance [facility] Care Teams Mold Stamper Relationship Specialty Start Date End Date Kobi Isidro MD [address] [place] [address] DEEPALI PERDOMO [id number] PCP - General Internal Medicine 02/14/25
--- OUTSIDE RECORDS SUMMARY | 2025-04-19 07:46 | XMS_ITS | Clinical Summary ---
Author Organization [facility] Prior to 09/24/[address] [place] [id number] Care Team Providers Care Biochemistry Specialist Name Role Phone Kobi Isidro MD Primary Care Provider [phone] Allergies Active Allergy Reactions Criticality Noted Date [...] age to complete this topic Care Teams Biochemistry Specialist Relationship Specialty Start Date End Date Kobi Isidro MD PCP - General Internal Medicine 06/10/22
== END 2025-04-19 07:44 | disposition home or self-care (01) ==
LOC: HO.HOSX 07:43
DX: S62.606D Fracture of unspecified phalanx of right little finger, subsequent encounter for fracture with routine healing (principal); X58.XXXD Exposure to other specified factors, subsequent encounter
CPT/HCPCS: 73130

== ENCOUNTER 2025-04-19 08:35 | Outpatient (AMB) | payer BC, SELFPAY ==
--- NOTE | 2025-04-19 08:44 | MHC.OFFVIS ---
Vital Signs 04/19/25 08:46 Height 5 ft 5 in Weight 175 lb BMI 29.1 Intake Visit Reasons: OV-RT 5th Distal Phalanx fx- 02/16/25- wound check Intake Note: Henrik is a 49 year old right hand dominant male who presents today for a Wound Check status post Right Small Finger Distal Phalanx Fracture, DOI: 02/16/25. At his last visit his sutures were removed and a light dressing was applied. He was instructed to keep the finger covered when out and about & avoid heavy lifting. Patient complains today of discomfort on the dorsal aspect of his DIP joint. Allergies ibuprofen Allergy (Verified 04/19/25 08:45) Hives metoprolol Allergy (Verified 04/19/25 08:45) Shortness of Breath HPI HPI OV-RT 5th Distal Phalanx fx- 02/16/25- wound check: Details: Henrik is a 49 year old right hand dominant male who presents today for a Wound Check status post Right Small Finger Distal Phalanx Fracture, DOI: 02/16/25. At his last visit his sutures were removed and a light dressing was applied. He was instructed to keep the finger covered when out and about & avoid heavy lifting. Patient complains today of mild discomfort on the dorsal aspect of his DIP joint. Patient inquires if the nail of the right small finger will ever grow in normally, and states that he has had some growth from the nail bed of the right small finger. Patient inquires about slight discoloration of the radial aspect of the distal right small finger. No other acute complaints or concerns at this time. Denies numbness or tingling. [facility] Social History Alcohol intake: current Alcohol intake frequency: holidays/special occasions only Alcohol type: wine Patient Tobacco Use Status: Former Tobacco user Current occupational status: employed Current occupation: rt handed, Sales Review of Systems Const All systems reviewed & are unremarkable except as noted in HPI and below Physical Exam Vital Signs: BMI result Body Mass Index 29.1 Extrem Other: Patient is alert, oriented, and in no acute distress. Neuro: Normal sensation of the tips of all digits of the right hand at this time Vascular: Cap refill brisk Pain: No tenderness to palpation about the distal aspect of the right small finger at the level of the fracture and laceration No pain with range of motion of the right hand ROM: Patient is able to make a closed fist and extend all digits of the right hand fully Skin: Approximately 2 cm laceration noted on the distal aspect of the right small finger with surrounding ecchymosis, well healed There is normal nail growth from the germinal matrix of the right small finger, has not grown fully across the nail bed General: No ecchymosis, erythema, or evidence of infection. Psych: Appears grossly normal Affect normal Attitude cooperative Results Reviewed Results Reviewed: X-rays obtained in the office today and independently reviewed by me, Nick Prescott PA-C, demonstrate nondisplaced distal tuft fracture of the right small finger with evidence of interval bony healing. Assessment & Plan Assessment & Plan (1) Open fracture of phalanx of right little finger: Code(s): S62.606B - Fracture of unspecified phalanx of right little finger, initial encounter for open fracture Category: Medical Plan 1. Open fracture of right small finger Date of injury 02/16/2025 Patient is educated about this condition Patient is educated about the typical recovery course Suture removed today without issue No further antibiotics necessary No splinting necessary, should keep dressing on while out and about No heavy lifting with the right hand Follow-up in 2 week for wound check, sooner with any acute concerns Orders: Orders XR hand RT min 3V Today M79.641 - Pain in right hand Coding Level of Care Code Global (07258) Diagnoses Open fracture of phalanx of right little finger S62.606B
[2025-04-19 08:46] VITALS: BMI 29.1
== END 2025-04-19 08:54 | disposition home or self-care (01) ==
LOC: HO.HOS 08:36
DX: S62.606B Fracture of unspecified phalanx of right little finger, initial encounter for open fracture (principal)
CPT/HCPCS: 99213

== ENCOUNTER → 2025-04-19 08:37 | Outpatient (BNV) | payer BC, SELFPAY | PROVIDERS: Visit Provider Radiology Diagnostic Ultrasound | DX: M79.641 Pain in right hand (principal) | CPT/HCPCS: 73130 ==